=== PATIENT | female | born 1970 | race Caucasian/White ===

== ENCOUNTER 2017-01-15 10:12 | Inpatient (IN) | payer MEDICAID ==
[~2017-01-15] VITALS: Ht 157.5 cm; Wt 54.0 kg
[2017-01-15 10:40] LABS: BASOPHILS % (AUTO) 0.3 % (0.0-2.0); EOSINOPHILS % (AUTO) 0.8 % (1.0-6.0); HEMATOCRIT 37.2 % (36-46); HEMOGLOBIN 12.8 g/dL (12.0-16.0); LYMPHOCYTES # (AUTO) 1.8 K/uL (1.0-4.8); LYMPHOCYTES % (AUTO) 23.8 % (22.0-44.0); MEAN CORPUSCULAR HEMOGLOBIN 31.8 pg (26.0-34.0); MEAN CORPUSCULAR HGB CONC 34.3 G/dL (31.0-37.0); MEAN CORPUSCULAR VOLUME 93 fL (80-100); MONOCYTES # (AUTO) 0.4 K/uL (0.1-1.0); NEUTROPHILS # (AUTO) 5.4 K/uL (1.8-7.7); NEUTROPHILS % (AUTO) 70.1 % (40.0-70.0); PLATELET COUNT (AUTO) 292 K/uL (150-450); RED BLOOD CELL COUNT(AUTO) 4.01 MIL/uL (4.00-5.20); RED CELL DISTRIBUTION WIDTH 14.1 % (11.5-14.5); WHITE BLOOD COUNT (AUTO) 7.7 K/uL (4.5-11.0)
[2017-01-15 10:44] LABS: GLUCOSE,POINT OF CARE 190 MG/DL (70-110)
[2017-01-15 10:49] LABS: ANION GAP 11 mmol/L (8-16); CALCIUM, TOTAL 8.9 mg/dL (8.8-10.5); CARBON DIOXIDE 26 mmol/L (22-29); CHLORIDE 105 mmol/L (98-107); CREATININE 0.91 mg/dL (0.60-1.30); GLOMERULAR FILTR. RATE CALC > 60 mL/min (>60); POTASSIUM 3.6 mmol/L (3.5-5.1); SODIUM SERUM 142 mmol/L (136-145); UREA NITROGEN, BLOOD 23 mg/dL (7-18)
[2017-01-15 10:54] LABS: ALANINE AMINOTRANSFERASE 24 U/L (12-78); ALBUMIN 3.6 g/dL (3.4-5.0); ASPARTATE AMINOTRANSFERASE 30 U/L (15-37); BILIRUBIN,TOTAL 1.1 mg/dL (0.1-1.0); TOTAL PROTEIN, SERUM 7.4 g/dL (6.4-8.2)
[2017-01-15] MEDS ORDERED: ZOLPIDEM TARTRATE 10 MG TABLET PO PRN (11:30)
[2017-01-15] MEDS ORDERED: DiphenhydrAMINE HCL 50 MG/ML VIAL ONE (12:49)
[2017-01-15] MEDS ORDERED: HALOPERIDOL LACTATE 5 MG/ML VIAL ONE (12:49)
[2017-01-15] MEDS ORDERED: LORazepam 2 MG/ML VIAL ONE (12:49)
[2017-01-15] MEDS ORDERED: HALOPERIDOL LACTATE 5 MG/ML VIAL IM ONE (13:00)
[2017-01-15] MEDS ORDERED: DiphenhydrAMINE HCL 50 MG/ML VIAL IM ONE (13:00)
[2017-01-15] MEDS ORDERED: LORazepam 2 MG/ML VIAL IM ONE (13:00)
[2017-01-16 08:33] LABS: CHOL/HDL RATIO 2.1 (3.9-5.7)
[2017-01-16 08:38] VITALS: BP 106/78
[2017-01-16] MEDS: ARIPiprazole 10 MG TABLET PO SCH ×2 (11:15→13:26)
[2017-01-16] MEDS ORDERED: HALOPERIDOL LACTATE 5 MG/ML VIAL IM ONE (16:15)
[2017-01-16] MEDS ORDERED: DiphenhydrAMINE HCL 50 MG/ML VIAL IM ONE (16:15)
[2017-01-16] MEDS ORDERED: LORazepam 2 MG/ML VIAL IM ONE (16:15)
[2017-01-16] MEDS ORDERED: ACETAMINOPHEN 325 MG TABLET PO PRN (16:30)
[2017-01-16] MEDS ORDERED: IBUPROFEN 400 MG TABLET PO PRN (16:30)
[2017-01-17] MEDS: LORazepam 2 MG TABLET PO PRN ×3 (01:01→16:59)
[2017-01-17] MEDS: HALOPERIDOL 5 MG TABLET PO PRN ×3 (01:02→16:59)
[2017-01-17] MEDS: ARIPiprazole 10 MG TABLET PO SCH (08:16)
[2017-01-18] MEDS: ARIPiprazole 10 MG TABLET PO SCH (10:00)
[2017-01-19 08:34] VITALS: BP 122/80
[2017-01-19 08:34] LABS: HEMOGLOBIN A1C 5.6 % (4.5-6.2)
[2017-01-19] MEDS: ARIPiprazole 10 MG TABLET PO SCH ×2 (08:41→12:18)
[2017-01-19] MEDS ORDERED: LORazepam 2 MG/ML VIAL IM ONE (08:45)
[2017-01-19] MEDS ORDERED: DiphenhydrAMINE HCL 50 MG/ML VIAL IM ONE (08:45)
[2017-01-19] MEDS ORDERED: HALOPERIDOL LACTATE 5 MG/ML VIAL IM ONE (08:45)
[2017-01-19 08:49] LABS: CHOL/HDL RATIO 2.8 (3.9-5.7); THYROID STIMULATING HORMONE 0.59 uIU/mL (0.36-3.74)
[2017-01-19] MEDS ORDERED: DIVALPROEX SODIUM 500 MG ER TABLET PO SCH (09:15)
[2017-01-19] MEDS: DIVALPROEX SODIUM 500 MG DR TABLET PO SCH ×2 (12:18→17:09)
[2017-01-19] MEDS: LORazepam 2 MG TABLET PO PRN (17:09)
[2017-01-19] MEDS: HALOPERIDOL 5 MG TABLET PO PRN (17:09)
[2017-01-20 02:54] VITALS: BP 117/67
[2017-01-20 08:36] VITALS: BP 112/70
[2017-01-20] MEDS: DIVALPROEX SODIUM 500 MG DR TABLET PO SCH ×3 (08:50→16:05)
[2017-01-20] MEDS: ARIPiprazole 10 MG TABLET PO SCH ×2 (08:50→09:00)
[2017-01-20] MEDS ORDERED: DiphenhydrAMINE HCL 50 MG/ML VIAL IM ONE (09:30)
[2017-01-20] MEDS ORDERED: LORazepam 2 MG/ML VIAL IM ONE (09:30)
[2017-01-20] MEDS ORDERED: HALOPERIDOL LACTATE 5 MG/ML VIAL IM ONE (09:30)
[2017-01-20] MEDS ORDERED: HALOPERIDOL LACTATE 5 MG/ML VIAL ONE (09:31)
[2017-01-20] MEDS ORDERED: DiphenhydrAMINE HCL 50 MG/ML VIAL ONE (09:31)
[2017-01-20] MEDS ORDERED: LORazepam 2 MG/ML VIAL ONE (09:31)
[2017-01-20] MEDS: HALOPERIDOL 5 MG TABLET PO PRN ×2 (12:07→17:02)
[2017-01-20] MEDS: LORazepam 2 MG TABLET PO PRN ×2 (12:07→17:02)
[2017-01-21] MEDS: LORazepam 2 MG TABLET PO PRN ×2 (09:01→16:11)
[2017-01-21] MEDS: DIVALPROEX SODIUM 500 MG DR TABLET PO SCH ×2 (09:01→16:11)
[2017-01-21] MEDS: ARIPiprazole 10 MG TABLET PO SCH (09:01)
[2017-01-21] MEDS ORDERED: HALOPERIDOL LACTATE 5 MG/ML VIAL ONE (11:07)
[2017-01-21] MEDS ORDERED: LORazepam 2 MG/ML VIAL ONE (11:07)
[2017-01-21] MEDS ORDERED: DiphenhydrAMINE HCL 50 MG/ML VIAL ONE (11:07)
[2017-01-21] MEDS ORDERED: LORazepam 2 MG/ML VIAL IM ONE (11:30)
[2017-01-21] MEDS ORDERED: DiphenhydrAMINE HCL 50 MG/ML VIAL IM ONE ×2 (11:30→18:45)
[2017-01-21] MEDS ORDERED: HALOPERIDOL LACTATE 5 MG/ML VIAL IM ONE ×2 (11:30→18:45)
[2017-01-21] MEDS: HALOPERIDOL 5 MG TABLET PO PRN (16:11)
[2017-01-22] MEDS: LORazepam 2 MG TABLET PO PRN (09:05)
[2017-01-22] MEDS: ARIPiprazole 10 MG TABLET PO SCH (09:05)
[2017-01-22] MEDS: DIVALPROEX SODIUM 500 MG DR TABLET PO SCH (09:22)
[2017-01-22] MEDS ORDERED: ARIP10TA8 PO (10:47)
[2017-01-22] MEDS ORDERED: DIVA500T35 PO (10:47)
== END 2017-01-22 14:00 | disposition home or self-care (01) | DRG 751 ==
LOC: EMS 10:14 → EDBD 10:14 → B3A 11:40
PROVIDERS: ADMIT Psychiatry & Neurology Psychiatry; ATTEND Psychiatry & Neurology Child & Adolescent Psychiatry
DX: F29 Unspecified psychosis not due to a substance or known physiological condition (principal); F23 Brief psychotic disorder; R73.9 Hyperglycemia, unspecified
CPT/HCPCS: 82962; 83036; 84443; 96372; 99285; G0480; J1200; J1630; J2060